=== PATIENT | male | born 1955 | race Caucasian/White ===

== ENCOUNTER 2017-09-18 13:43 | Emergency (ER) | payer OTHER ==
[~2017-09-18] VITALS: Ht 180.3 cm; Wt 74.8 kg
[2017-09-18] MEDS ORDERED: ASPIRIN325 PO (13:58)
[2017-09-18] MEDS ORDERED: ROBAXIN 750 MG750 M1 PO (13:58)
[2017-09-18 14:13] LABS: URINE BILIRUBIN NEGATIVE (Negative); URINE BLOOD NEGATIVE (Negative); URINE CLARITY CLEAR; URINE COLOR YELLOW; URINE GLUCOSE-RANDOM NEGATIVE (Negative); URINE KETONES 2+ (Negative); URINE LEUKOCYTES-REFLEX NEGATIVE (Negative); URINE NITRITE-REFLEX NEGATIVE (Negative); URINE PROTEIN NEGATIVE (Negative); URINE SPECIFIC GRAVITY 1.025 (1.005-1.030); URINE UROBILINOGEN 0.2 E.U./dl (0.2-1.0)
[2017-09-18 14:45] LABS: CALCIUM 8.8 mg/dL (8.5-10.1); POTASSIUM 3.8 mmol/L (3.5-5.1)
[2017-09-18 14:55] LABS: ALBUMIN 3.5 g/dL (3.4-5.0); TOTAL BILIRUBIN 0.3 mg/dL (<0.1-1.0); TOTAL PROTEIN 6.5 g/dL (6.4-8.2)
[2017-09-18 15:14] LABS: ABSOLUTE MONOCYTES 0.5 thou/uL (0.0-1.2); ABSOLUTE NEUTROPHILS 6.1 thou/uL (1.6-8.1); BASOPHILS 0.3 %; EOSINOPHILS 0.4 %; HEMATOCRIT 44.9 % (42.0-52.0); HEMOGLOBIN 14.9 gm/dL (14.0-18.0); MCH 29.7 pg (26.0-34.0); MCHC 33.1 g/dL (28.0-37.0); MCV 89.9 fL (80.0-100.0); MONOCYTES 6.1 %; MPV 8.8 fl. (7.2-11.1); NUCLEATED RBCS 0 /100WBC; PLATELET COUNT* 170 thou/uL (150-400); POLYS 80.2 %; RBC 4.99 mil/uL (4.50-6.00); RDW-CV 14.5 % (10.5-14.5); WBC 7.6 thou/uL (4.0-11.0)
[2017-09-18 15:21] VITALS: BP 166/100
[2017-09-18 15:22] LABS: APTT 24.3 Seconds (25.0-31.3); INR 1.2; PROTIME 11.6 Seconds (9.20-11.50)
[2017-09-18 15:23] LABS: AMP/METHAMP Negative (Negative); BARBITURATES Negative (Negative); BENZODIAZEPINES Negative (Negative); COCAINE Negative (Negative); METHADONE Negative (Negative); OPIATES Negative (Negative); PCP Negative (Negative); THC Negative (Negative)
== END 2017-09-18 15:24 | disposition left against medical advice (07) ==
LOC: M.ERS 13:43
PROVIDERS: Nurse Practitioner Family
DX: M54.5 Low back pain (principal); M25.552 Pain in left hip; T39.011A Poisoning by aspirin, accidental (unintentional), initial encounter; Y92.89 Other specified places as the place of occurrence of the external cause